=== PATIENT | female | born 1990 | race Caucasian/White ===

== ENCOUNTER 2018-02-07 18:28 | Outpatient (CLI) ==
[2018-02-08 00:44] VITALS: BP 138/76; PULSE 77; RESP 16; TEMP 98.3
--- NOTE | 2018-02-09 17:12 | P.MSEPDOC ---
Presenting Problems - Arrival Data Date of Arrival on Unit: 02/07/18 Time of Arrival on Unit: 18:28 Mode of Transport: Ambulatory - Complaint OB-Reason for Admission/Chief Complaint: Possible Onset of Labor Comment: No care, states anshul today 2 min apart with pelvic pressure Medical History - Information : 3 Para: 1 Term: 1 : 0 Abortions: Spontaneous or Elective: 1 Number of Living Children: 1 - Gestational Age Gestational Age by EMILY (wks/days): 40 Weeks and 2 Days - History Complications: No Care, Smoker Review of Systems - Review of Systems Constitutional: No problems Breast: No problems ENT: No problems Cardiovascular: No problems Respiratory: No problems Gastrointestinal: No problems Genitourinary: No problems Musculoskeletal: No problems Neurological: No problems Skin: No problems Vital Signs - Temperature Temperature: 98.3 F Temperature Source: Temporal Artery Scan - Pulse Right Brachial Pulse Rate: 77 Pulse Assessment Method: Automatic Cuff - Respirations Respiratory Rate: 16 Oxygen Delivery Method: Room Air - Blood Pressure Right Arm Blood Pressure: 138/76 Blood Pressure Mean: 96 Blood Pressure Source: Automatic Cuff Medical Screen Scoring (Pre) - Cervical Exam Dilation: 1-3 cm = 1 Effacement: Exam Deferred Membranes: Intact - Uterine Contractions Frequency: > 5 minutes apart = 1 Duration: > 40 seconds = 2 Intensity: N/A - Maternal Vital Signs Maternal Temperature: N/A Maternal Blood Pressure: N/A Signs of Preeclampsia: N/A Maternal Respirations: N/A - Pain Assessment Pain Location and Character: Abdomen Pain Scale Used: Numeric (1 - 10) Pain Intensity: 6 Pain Description: *Acute, Tightness Pain Frequency: Intermittent Pain Duration: 3 Pain Duration Units: Hours Pain Behavior: None Exhibited Pain Aggravating Factors: Contractions - Maternal Trauma Maternal Trauma: N/A - Assessment Baseline FHR: 120 Heart Rate - NICHD Category: Category I (Normal) = 0 - Total Score Total Score (Pre): 4 - Level of Risk Level of Risk: Low (0-5) Medical Screen Scoring (Post) - Cervical Exam Dilation: 1-3 cm = 1 Effacement: Exam Deferred Membranes: Intact - Uterine Contractions Frequency: > 5 minutes apart = 1 Duration: N/A Intensity: N/A - Maternal Vital Signs Maternal Temperature: N/A Maternal Blood Pressure: N/A Maternal Respirations: N/A - Maternal Trauma Maternal Trauma: N/A - Total Score Total Score (Post): 2 Physician Notification (Post) - Physician Notified Physician Notified Date: 02/07/18 Physician Notified Time: 20:15 Spoke With: Mimi Constantino Order Received: Yes (discharge) - Notification Comment Comment: not in labor, labs have been drawn and ultrasound last week Disposition - Disposition OB Disposition: Discharge to home, Written follow up instructions reviewed Discharge Date: 02/07/18 Discharge Time: 20:30 I agree with the RN Medical Screening Exam: Yes Risk & Benefit of care provided described in d/c instruction: Yes Diagnosis: FALSE LABOR AT OR AFTER 37 COMPLETED WEEKS OF GESTATION
== END 2018-02-07 20:30 | disposition home or self-care (01) ==
LOC: FBPOP 18:28
PROVIDERS: ATTEND Obstetrics & Gynecology
DX: O47.1 False labor at or after 37 completed weeks of gestation (principal); Z3A.40 40 weeks gestation of pregnancy
CPT/HCPCS: 59025; 99213

== ENCOUNTER 2018-02-08 04:35 | Inpatient (IN) | payer OTHER ==
[2018-02-08] MEDS ORDERED: TERBUTALINE 1 MG/ML VIAL SQ PRN (04:55)
[2018-02-08] MEDS ORDERED: OXYTOCIN 10 UNIT/ML 1 ML VIAL IM PRN (04:55)
[2018-02-08] MEDS ORDERED: LIDOCAINE 1% (PF) 10 MG/ML (30 ML SDV) SQ PRN (04:55)
[2018-02-08] MEDS ORDERED: CARBOPROST TROMETHAMINE 250 MCG/ML 1 ML AMP IM PRN (04:55)
[2018-02-08] MEDS ORDERED: METHYLERGONOVINE 0.2 MG/ML 1 ML AMP IM PRN (04:55)
[2018-02-08] MEDS ORDERED: CLINDAMYCIN 900 MG in DEXTROSE 5% IN WATER 50 ML IVPB SCH ×2 (05:00)
[2018-02-08] MEDS ORDERED: CLINDAMYCIN 900 MG in DEXTROSE 5% IN WATER 50 ML IVPB STA ×2 (05:07)
[2018-02-08] MEDS: LACTATED RINGERS 1,000 ML IV SCH ×2 (05:24→05:52)
[2018-02-08 05:38] LABS: Basophils % (A) 0 %; Eosinophils # (A) 0.1 k/uL (0-0.7); Eosinophils % (A) 1 %; HCT 35.9 % (34.0-46.0); HGB 12.9 gm/dL (11.4-16.0); Hyperchromasia Slight; Lymphocytes # (A) 1.4 k/uL (1.0-4.8); Lymphocytes % (A) 18 %; MCH 30.2 pg (25.0-35.0); MCHC 35.9 g/dL (31.0-37.0); MCV 84.1 fL (80.0-100.0); Mean Platelet Volume 8.8; Monocytes # (A) 0.5 k/uL (0-1.0); Monocytes % (A) 7 %; Neutrophils # (A) 5.6 k/uL (1.3-7.7); Neutrophils % (A) 71 %; Platelet Count 172 k/uL (150-450); Poikilocytosis Slight; RBC 4.27 m/uL (3.80-5.40); WBC 7.9 k/uL (3.8-10.6)
[2018-02-08 05:48] VITALS: BMI 27.1
[2018-02-08] MEDS ORDERED: SODIUM CHLORIDE 0.9% 100 ML BAG ONE (06:21)
[2018-02-08] MEDS ORDERED: BUPIVACAINE (PF) 0.25% 30 ML VIAL ONE (06:21)
[2018-02-08] MEDS ORDERED: fentaNYL (PF) 50 MCG/ML 5 ML AMP ONE (06:21)
[2018-02-08] MEDS ORDERED: BUPIVACAINE (PF) 0.25% 25 ML, fentaNYL (PF) 200 MCG in SODIUM CHLORIDE 0.9% 71 ML EPIDURAL ONE (06:48)
[2018-02-08] MEDS ORDERED: HYDROCORTISONE 2.5% RECTAL CREAM 30 GM TUBE RECTAL PRN (11:28)
[2018-02-08] MEDS ORDERED: LANOLIN CREAM 5 GM TUBE TOPICAL PRN (11:28)
[2018-02-08] MEDS ORDERED: WITCH HAZEL 1 EACH MED..PAD TOPICAL PRN (11:28)
[2018-02-08] MEDS ORDERED: diphenhydrAMINE 50 MG/ML 1 ML VIAL IVP PRN ×2 (11:28)
[2018-02-08] MEDS ORDERED: ZOLPIDEM 5 MG TAB PO PRN (11:28)
[2018-02-08] MEDS ORDERED: SIMETHICONE 80 MG CHEWABLE PO PRN (11:28)
[2018-02-08] MEDS ORDERED: BENZOCAINE/MENTHOL SPRAY 1 GM/SPRAY AEROSOL TOPICAL PRN (11:28)
[2018-02-08] MEDS ORDERED: diphenhydrAMINE 50 MG CAP PO PRN (11:28)
[2018-02-08] MEDS ORDERED: MEASLES-MUMPS-RUBELLA VACC/PF 12,500 UNIT/0.5 ML VIAL SQ ONE (11:28)
[2018-02-08] MEDS ORDERED: diphenhydrAMINE 25 MG CAP PO PRN (11:28)
[2018-02-08] MEDS: IBUPROFEN 600 MG TAB PO PRN (17:56)
[2018-02-08] MEDS: ACETAMINOPHEN TAB 325 MG TAB PO PRN (19:52)
[2018-02-08] MEDS: SENNOSIDES-DOCUSATE SODIUM 1 EACH TAB PO SCH (19:54)
[2018-02-09] MEDS: IBUPROFEN 600 MG TAB PO PRN ×4 (00:45→23:02)
--- NOTE | 2018-02-09 08:11 | P.HPOB ---
History of Present Illness H&P Date: 02/08/18 Chief Complaint: Labor 28 year old presents at 40 weeks and 3 days by a third trimester ultrasound in active labor. Patient was admitted by my partner Dr. Cartagena. Her cervix was 5 cm dilated, 80% effaced, -2 station. She is anshul every 3-5 minutes. heart tones 130-135 with moderate variability and reactive. This patient has had no care she has been seen 1 time in the care [place] an area and had a and ultrasound done there on January 23 that said that she was 38 weeks and 1 day. She was in triage on February 05 and indicated that she planned to deliver here so labs were drawn at that time. Review of Systems All systems: negative Constitutional: Denies chills, Denies fever Eyes: denies blurred vision, denies pain Ears, nose, mouth and throat: Denies headache, Denies sore throat Cardiovascular: Denies chest pain, Denies shortness of breath Respiratory: Denies cough Gastrointestinal: Denies abdominal pain, Denies diarrhea, Denies nausea, Denies vomiting Genitourinary: Denies dysuria, Denies hematuria Musculoskeletal: Denies myalgias Integumentary: Denies pruritus, Denies rash Neurological: Denies numbness, Denies weakness Psychiatric: Denies anxiety, Denies depression Endocrine: Denies fatigue, Denies weight change Past Medical History Past Medical History: No Reported History Additional Past Medical History / Comment(s): Obstetric history: She's had one spontaneous and 1 previous vaginal delivery. She's had no care with this , see history of present illness for further details. Blood type is O+, antibodies negative, rubella nonimmune, hepatitis B-, GBS unknown, HIV nonreactive, urine tox screen was negative. History of Any Multi-Drug Resistant Organisms: None Reported Past Surgical History: No Surgical Hx Reported Past Anesthesia/Blood Transfusion Reactions: No Reported Reaction Past Psychological History: No Psychological Hx Reported Smoking Status: Current every day smoker Past Alcohol Use History: None Reported Past Drug Use History: None Reported - Past Family History Mother Family Medical History: No Reported History Medications and Allergies Home Medications Medication Instructions Recorded Confirmed Type No Known Home Medications [No 02/08/18 02/08/18 History Known Home Medications] Allergies Allergy/AdvReac Type Severity Reaction Status Date / Time amoxicillin AdvReac Unknown Verified 02/08/18 04:39 Childhood Exam Osteopathic Statement: *. No significant issues noted on an osteopathic structural exam other than those noted in the History and Physical/Consult. - Vital Signs Vital signs: Vital Signs Temp Pulse Resp BP 02/09/18 00:00 98.8 F 72 16 118/73 02/08/18 20:00 98.5 F 67 16 132/74 02/08/18 16:00 97.7 F 71 18 119/68 02/08/18 13:08 67 16 118/67 02/08/18 12:38 67 16 118/67 02/08/18 12:08 60 16 121/76 02/08/18 11:53 57 L 16 123/61 02/08/18 11:38 58 L 16 116/56 02/08/18 11:23 81 16 128/68 02/08/18 11:08 98.3 F 70 16 126/61 Heart: Regular rate and rhythm Lungs: Clear to auscultation bilaterally Abdomen: Soft, nontender Extremities: Negative Homans sign Results Result Diagrams: 02/08/18 05:20 Assessment and Plan (1) Normal labor Current Visit: Yes Status: Acute Code(s): O80 - ENCOUNTER FOR FULL-TERM UNCOMPLICATED DELIVERY; Z37.9 - OUTCOME OF DELIVERY, UNSPECIFIED SNOMED Code(s ): 41336414 (2) No care in current in third trimester Current Visit: Yes Status: Acute Code(s): O09.33 - SUPRVSN OF PREG W INSUFFICIENT ANTENAT CARE, THIRD TRIMESTER SNOMED Code(s): 454143384 Plan: 1. Admit to family place 2. Expectant management 3. Anaprox for GBS prophylaxis 4. Anticipate normal vaginal delivery
[2018-02-09] MEDS: SENNOSIDES-DOCUSATE SODIUM 1 EACH TAB PO SCH ×2 (08:12→19:30)
--- NOTE | 2018-02-09 08:14 | P.PROBDLV ---
Vaginal Delivery Note - . Vaginal Delivery Note: 28-year-old G 3 P1 presented at 40 weeks and 3 days in active labor. When she was about 9 cm dilated 80% effaced and -1 station amniotomy was performed at 10 AM. Thick meconium fluid was noted. heart tones were 100 3135 with moderate variability and reactive. She was comfortable with epidural at this time. She proceeded complete around 1040 pushed, and delivered a viable male infant over intact perineum under epidural anesthesia at 10:53 AM. Head delivered OA, anterior shoulder delivered gentle downward traction followed by posterior shoulder and rest of body. Nose and mouth bulb suctioned, cord clamped and cut, infant placed mother's abdomen. Apgars 8, 9, weight 8 lbs. 5 oz. Placenta delivered spontaneously, intact with three-vessel cord at 10:55 AM. Vagina, cervix, and perineum were inspected. First-degree midline laceration was repaired with 3-0 Vicryl. Estimated blood loss 150 mL. Mother and baby in stable condition.
--- NOTE | 2018-02-09 08:17 | P.DS ---
Providers Date of admission: 02/08/18 04:54 Expected date of discharge: 02/09/18 Attending physician: Mathew Le Primary care physician: Stated None - Discharge Diagnosis(es) (1) Normal labor Current Visit: Yes Status: Resolved (2) No care in current in third trimester Current Visit: Yes Status: Acute (3) Normal vaginal delivery Current Visit: Yes Status: Acute Hospital Course: Patient presented at 40 weeks and 3 days in active labor and underwent a normal vaginal delivery. Her course was uncomplicated. She denies nausea, vomiting, chest pain, shortness of breath or calf pain. She'll be discharged home day #1 in stable condition to follow-up with me in 6 weeks. Plan - Discharge Summary New Discharge Prescriptions: New Ibuprofen [Motrin] 600 mg PO Q6HR PRN #30 tab PRN Reason: Mild Pain Or Fever >= 100.5 Discharge Medication List Ibuprofen [Motrin] 600 mg PO Q6HR PRN #30 tab 02/09/18 [Rx] Follow up Appointment(s)/Referral(s): Karina Partida DO [Doctor of Osteopathic Medicine] - 6 Weeks Discharge Disposition: HOME SELF-CARE
[2018-02-09] MEDS: ACETAMINOPHEN TAB 325 MG TAB PO PRN ×2 (09:33→19:30)
[2018-02-10] MEDS: SENNOSIDES-DOCUSATE SODIUM 1 EACH TAB PO SCH (08:25)
[2018-02-10] MEDS: IBUPROFEN 600 MG TAB PO PRN (08:25)
[2018-02-10 16:40] VITALS: BP 130/71; PULSE 55; RESP 18; TEMP 98.6
== END 2018-02-10 17:45 | disposition home or self-care (01) | DRG 775 ==
LOC: FBPOP 04:35 → MERGE 04:54 → 4FBP 04:54
PROVIDERS: ADMIT Obstetrics & Gynecology; ATTEND Obstetrics & Gynecology
PROC: 0HQ9XZZ Repair Perineum Skin, External Approach (ICD-10-PCS; principal; 2018-02-08)
PROC: 10E0XZZ Delivery of Products of Conception, External Approach (ICD-10-PCS; 2018-02-08)
DX: O48.0 Post-term pregnancy (principal); F17.200 Nicotine dependence, unspecified, uncomplicated; Z37.0 Single live birth; Z3A.40 40 weeks gestation of pregnancy; O70.0 First degree perineal laceration during delivery; O77.0 Labor and delivery complicated by meconium in amniotic fluid; O99.334 Smoking (tobacco) complicating childbirth; Z88.0 Allergy status to penicillin
CPT/HCPCS: 59025; 85025; 88307; 99213

== ENCOUNTER → 2020-09-15 | Outpatient (CLI) | payer OTHER ==
--- NOTE | 2020-09-16 07:09 | US ---
EXAMINATION TYPE: US OB >= 14 wk fetus DATE OF EXAM: 09/15/2020 COMPARISON: None CLINICAL HISTORY: Z36 dates and viability unknown dates TECHNIQUE: OBTA GESTATIONAL AGE / DATING Physician Established: Not yet established Dates by LMP: LMP unknown Dates by First Scan: No previous this is first scan Dates by Current Scan: (17 weeks/5 days) EDC: 02/18/2021 SURVEY IUP: Single PLACENTA: Anterior PREVIA: No Previa ALIX: 16.3 cm Normal CERVICAL LENGTH (transabdominal: norm > 3.0cm): 3.6 cm BIOMETRY PRESENTATION: Variable BPD: 3.8 cm 17 weeks / 5 days HC: 13.6 cm 17 weeks / 1 days AC: 12.7 cm 18 weeks / 2 days FL: 2.4 cm 17 weeks / 4 days ESTIMATED WEIGHT IN GRAMS: 211 grams ESTIMATED WEIGHT IN LBS/OZ: 0 lbs. 7 oz. HC/AC: 1.1 Normal FL/AC: 20 Normal HEART RATE: 172 bpm RHYTHM: Normal IMPRESSION: Single viable intrauterine .
== END | disposition home or self-care (01) ==
LOC: RADUSWWP 17:08
PROVIDERS: ATTEND Obstetrics & Gynecology
DX: O36.72X0 Maternal care for viable fetus in abdominal pregnancy, second trimester, not applicable or unspecified (principal); Z3A.17 17 weeks gestation of pregnancy
CPT/HCPCS: 76805

== ENCOUNTER → 2020-10-27 | Outpatient (CLI) | payer OTHER ==
--- NOTE | 2020-10-28 08:05 | US ---
EXAMINATION TYPE: US OB >= 14 wk fetus DATE OF EXAM: 10/27/2020 COMPARISON: None CLINICAL HISTORY: 22-year-old female Z36.3 Encounter for screening for ma, growth TECHNIQUE: OBTA GESTATIONAL AGE / DATING Physician Established: (25 weeks/3 days) EDC: 02/18/2021 Dates by LMP: LMP unknown Dates by First Scan: (23 weeks/5 days) EDC: 02/18/2021 Dates by Current Scan: (22 weeks/3 days) EDC: 02/27/2021 FINDINGS: SURVEY IUP: Single PLACENTA: Anterior PREVIA: No Previa ALIX: 17.5 cm Normal CERVICAL LENGTH (transabdominal: norm > 3.0cm): 3.0cm BIOMETRY PRESENTATION: Breech BPD: 5.2 cm 22 weeks / 0 days HC: 21.2 cm 23 weeks / 3 days AC: 17.0 cm 22 weeks / 1 days FL: 3.7 cm 22 weeks / 1 days ESTIMATED WEIGHT IN GRAMS: 478 grams ESTIMATED WEIGHT IN LBS/OZ: 1 lbs. 1 oz. WEIGHT PERCENTAGE BASED ON ESTABLISHED DATES: 2% HC/AC: 1.25 (1.05-1.21). Mildly elevated. FL/AC: 22 Normal HEART RATE: 149 bpm RHYTHM: Normal IMPRESSION: 1. Single live intrauterine at 22 weeks 3 days by current biometry. There has been 1 week 2 days less growth than expected as compared to the patient's initial 09/15/2020 scan. In additi on, the patient reports an established gestational age of 25 weeks 3 days, so, the current size is 3 weeks smaller. EFW percent is at 2%. Close follow-up recommended as we note a mildly elevated HC/AC w hich can be seen with early brain sparing physiology. Further evaluation as clinically indicated. 2. In addition, note cervical length at the lower limits (3 cm).
== END | disposition home or self-care (01) ==
LOC: RADUSWWP 16:17
PROVIDERS: ATTEND Obstetrics & Gynecology
DX: Z36.3 Encounter for antenatal screening for malformations (principal); Z3A.22 22 weeks gestation of pregnancy
CPT/HCPCS: 76805

== ENCOUNTER 2024-07-26 18:32 | Emergency (ER) | payer OTHER ==
[2024-07-26 18:41] VITALS: RESP 16; TEMP 98.9
--- NOTE | 2024-07-26 19:27 | ED ---
Dizziness HPI - General Chief Complaint: Dizziness Stated Complaint: Dizziness Time Seen by Provider: 07/26/24 19:10 Source: patient, family, RN notes reviewed Mode of arrival: ambulatory Limitations: no limitations - History of Present Illness Initial Comments: 34-year-old female past medical history presenting to the ER with chief complaint of dizziness x 1 week wth associated body aches, sore throat, cough, chest pain, shortness of breath. States when she stands up she feels as though she is going to pass out, states she has not passed out though. States she has pain with inspiration. She has also had intermittent subjective chills. She is a vape smoker. Denies history of blood clots, recent surgeries, recent travel, blood thinners. States she has had the lightheadedness before and was hospitalized for this where they told her she had a low heart rate. - Related Data Home Medications Medication Instructions Recorded Confirmed No Known Home Medications 02/07/18 02/07/18 Previous Rx's Medication Instructions Recorded Ibuprofen [Motrin] 600 mg PO Q6HR PRN #30 tab 02/09/18 Allergies Allergy/AdvReac Type Severity Reaction Status Date / Time amoxicillin Allergy Unknown Verified 02/07/18 18:45 Childhood Review of Systems ROS Statement: Those systems with pertinent positive or pertinent negative responses have been documented in the HPI. ROS Other: All systems not noted in ROS Statement are negative. Past Medical History Past Medical History: No Reported History Additional Past Medical History / Comment(s): Obstetric history: She's had one spontaneous and 1 previous vaginal delivery. She's had no care with this , see history of present illness for further details. Blood type is O+, antibodies negative, rubella nonimmune, hepatitis B-, GBS unknown, HIV nonreactive, urine tox screen was negative. History of Any Multi-Drug Resistant Organisms: None Reported Past Surgical History: No Surgical Hx Reported Past Anesthesia/Blood Transfusion Reactions: No Reported Reaction Past Psychological History: No Psychological Hx Reported Smoking Status: Vaper Past Alcohol Use History: Abuse Past Drug Use History: Opiates, Prescription Drug Abuse - Past Family History Mother Family Medical History: No Reported History General Exam Limitations: no limitations General appearance: alert, in no apparent distress Head exam: Present: atraumatic, normocephalic, normal inspection Eye exam: Present: normal appearance, PERRL, EOMI. Absent: scleral icterus, conjunctival injection, periorbital swelling ENT exam: Present: normal exam, normal oropharynx, mucous membranes moist Neck exam: Present: normal inspection. Absent: tenderness, meningismus, lymphadenopathy Respiratory exam: Present: normal lung sounds bilaterally. Absent: respiratory distress, wheezes, rales, rhonchi, stridor Cardiovascular Exam: Present: regular rate, normal rhythm, normal heart sounds. Absent: systolic murmur, diastolic murmur, rubs, gallop, clicks GI/Abdominal exam: Present: soft, normal bowel sounds. Absent: distended, tenderness, guarding, rebound, rigid Neurological exam: Present: alert, oriented X3, CN II-XII intact Psychiatric exam: Present: normal affect, normal mood Skin exam: Present: warm, dry, intact, normal color. Absent: rash Course Vital Signs 07/26/24 18:36 Temperature 98.9 F Pulse Rate 60 Respiratory 16 Rate Blood Pressure 113/74 O2 Sat by Pulse 98 Oximetry EKG Findings - EKG Results: EKG: interpreted by [facility] (EKG reveals sinus bradycardia with low QRS voltage. Ventricular rate 49 bpm, IL interval 128, QRS duration 101, QT/QTc 448/417) Medical Decision Making - Medical Decision Making Was pt. sent in by a medical professional or institution (, PA, RISK OFFICER, urgent care, hospital, or usp...) When possible be specific @ -No Did you speak to anyone other than the patient for history (EMS, parent, family, police, friend...)? What history was obtained from this source @ -No Did you review nursing and triage notes (agree or disagree)? Why? @ -I reviewed and agree with nursing and triage notes Were old charts reviewed (outside hosp., previous admission, EMS record, old EKG, old radiological studies, urgent care reports/EKG's, usp records)? Report findings @ -No old charts were reviewed Differential Diagnosis (chest pain, altered mental status, abdominal pain women, abdominal pain men, vaginal bleeding, weakness, fever, dyspnea, syncope, headache, dizziness, GI bleed, back pain, seizure, CVA, palpatations, mental health, musculoskeletal)? @ -Differential Dizziness: Benign paroxysmal positional Vertigo, Meniere's disease, otitis media, acoustic neuroma, vertebrobasilar insufficiency, cerebellar stroke, encephalitis, hypovolemic, arrhythmia, coronary artery syndrome, anemia, this is not meant to be an all-inclusive list EKG interpreted by me (3pts min.). @ -As above X-rays interpreted by me (1pt min.). @ -Chest x-ray reveals no acute process CT interpreted by me (1pt min.). @ -None done U/S interpreted by me (1pt. min.). @ -None done What testing was considered but not performed or refused? (CT, X-rays, U/S, labs)? Why? @ -None What meds were considered but not given or refused? Why? @ -None Did you discuss the management of the patient with other professionals (bipin soliman i.e. , PA, RISK OFFICER, lab, RT, psych nurse, social worker psychiatric, supervisor diagnostic, teacher, foreign service officer, human services case manager)? Give summary @ -No Was smoking cessation discussed for >3mins.? @ -No Was critical care preformed (if so, how long)? @ -No Were there social determinants of health that impacted care today? How? (Homelessness, low income, unemployed, alcoholism, drug addiction, transportation, low edu. Level, literacy, decrease access to med. care, assisted, rehab)? @ -No Was there de-escalation of care discussed even if they declined (Discuss DNR or withdrawal of care, Hospice)? DNR status @ -No What co-morbidities impacted this encounter? (DM, HTN, Smoking, COPD, CAD, Cancer, CVA, ARF, Chemo, Hep., AIDS, mental health diagnosis, sleep apnea, morbid obesity)? @ -None Was patient admitted / discharged? Hospital course, mention meds given and route, prescriptions, significant lab abnormalities, going to OR and other pertinent info. @ -Discharge. This is a 34-year-old female presenting for dizziness x 1 week with sore throat, shortness of breath, nasal congestion, and cough. Vital signs are within acceptable limits upon initial evaluation. Physical examination is unremarkable. No sign of bacterial infection. Patient was provided with IV fluids and analgesics. Workup including CBC, CMP, troponin, coags, D-dimer unremarkable. Chest x-ray reveals no acute process. EKG reveals sinus jessie cardia with no ST changes. Discussed findings with patient. I do not believe symptoms are caused by emergent etiology at this time. Discussed diagnosis of viral upper respiratory infection. Advise close follow-up with PCP for further evaluation for bradycardia. Strict return precautions discussed and patient is agreeable to plan. Case was discussed with my ED attending Dr. Gama. Patient stable at time of discharge. Undiagnosed new problem with uncertain prognosis? @ -No Drug Therapy requiring intensive monitoring for toxicity (Heparin, Nitro, Insulin, Cardizem)? @ -No Were any procedures done? @ -No Diagnosis/symptom? @ -Viral upper respiratory infection, dizziness Acute, or Chronic, or Acute on Chronic? @ -Acute Uncomplicated (without systemic symptoms) or Complicated (systemic symptoms)? @ -Uncomplicated Side effects of treatment? @ -No Exacerbation, Progression, or Severe Exacerbation? @ -No Poses a threat to life or bodily function? How? (Chest pain, USA, IA, pneumonia, PE, COPD, DKA, ARF, appy, cholecystitis, CVA, Diverticulitis, Homicidal, Suicidal, threat to staff... and all critical care pts) @ -Unlikely - Lab Data Result diagrams: 07/26/24 19:58 07/26/24 19:58 Lab Results 07/26/24 07/26/24 07/26/24 Range/Units 19:58 19:58 19:58 WBC 10.2 (3.8-10.6) k/uL RBC 4.93 (3.80-5.40) m/uL Hgb 13.9 (11.4-16.0) gm/dL Hct 41.0 (34.0-46.0) % MCV 83.2 (80.0-100.0) fL MCH 28.3 (25.0-35.0) pg MCHC 34.0 (31.0-37.0) g/dL RDW 12.8 (11.5-15.5) % Plt Count 337 (150-450) k/uL MPV 8.4 Neutrophils % 74 % Lymphocytes % 16 % Monocytes % 6 % Eosinophils % 2 % Basophils % 1 % Neutrophils # 7.5 (1.3-7.7) k/uL Lymphocytes # 1.7 (1.0-4.8) k/uL Monocytes # 0.6 (0-1.0) k/uL Eosinophils # 0.2 (0-0.7) k/uL Basophils # 0.1 (0-0.2) k/uL PT 10.0 (10.0-12.5) sec INR 0.9 (<1.2) APTT 26.5 (22.0-30.0) sec D-Dimer 0.51 (<0.60) mg/L FEU Sodium (137-145) mmol/L Potassium (3.5-5.1) mmol/L Chloride (98-107) mmol/L Carbon Dioxide (22-30) mmol/L Anion Gap mmol/L BUN (7-17) mg/dL Creatinine (0.52-1.04) mg/dL Est GFR (CKD-EPI)AfAm (>60 ml/min/1.73 sqM) Est GFR (CKD-EPI)NonAf (>60 ml/min/1.73 sqM) Glucose (74-99) mg/dL Calcium (8.4-10.2) mg/dL Total Bilirubin (0.2-1.3) mg/dL AST (14-36) U/L ALT (4-34) U/L Alkaline Phosphatase (38-126) U/L Troponin I (0.000-0.034) ng/mL Total Protein (6.3-8.2) g/dL Albumin (3.5-5.0) g/dL Urine HCG, Qual Not Detected (Not Detectd) Influenza Type A (PCR) (Not Detectd) Influenza Type B (PCR) (Not Detectd) RSV (PCR) (Not Detectd) SARS-CoV-2 (PCR) (Not Detectd) Group A Strep (PCR) (Not Detectd) 07/26/24 07/26/24 07/26/24 Range/Units 19:58 19:58 19:58 WBC (3.8-10.6) k/uL RBC (3.80-5.40) m/uL Hgb (11.4-16.0) gm/dL Hct (34.0-46.0) % MCV (80.0-100.0) fL MCH (25.0-35.0) pg MCHC (31.0-37.0) g/dL RDW (11.5-15.5) % Plt Count (150-450) k/uL MPV Neutrophils % % Lymphocytes % % Monocytes % % Eosinophils % % Basophils % % Neutrophils # (1.3-7.7) k/uL Lymphocytes # (1.0-4.8) k/uL Monocytes # (0-1.0) k/uL Eosinophils # (0-0.7) k/uL Basophils # (0-0.2) k/uL PT (10.0-12.5) sec INR (<1.2) APTT (22.0-30.0) sec D-Dimer (<0.60) mg/L FEU Sodium 133 L (137-145) mmol/L Potassium 4.7 (3.5-5.1) mmol/L Chloride 97 L (98-107) mmol/L Carbon Dioxide 31 H (22-30) mmol/L Anion Gap 5 mmol/L BUN 14 (7-17) mg/dL Creatinine 1.04 (0.52-1.04) mg/dL Est GFR (CKD-EPI)AfAm 83 (>60 ml/min/1.73 sqM) Est GFR (CKD-EPI)NonAf 72 (>60 ml/min/1.73 sqM) Glucose 112 H (74-99) mg/dL Calcium 9.3 (8.4-10.2) mg/dL Total Bilirubin 0.4 (0.2-1.3) mg/dL AST 25 (14-36) U/L ALT 16 (4-34) U/L Alkaline Phosphatase 138 H (38-126) U/L Troponin I <0.012 (0.000-0.034) ng/mL Total Protein 6.8 (6.3-8.2) g/dL Albumin 4.1 (3.5-5.0) g/dL Urine HCG, Qual (Not Detectd) Influenza Type A (PCR) (Not Detectd) Influenza Type B (PCR) (Not Detectd) RSV (PCR) (Not Detectd) SARS-CoV-2 (PCR) (Not Detectd) Group A Strep (PCR) NOT DETECTED (Not Detectd) 07/26/24 Range/Units 19:58 WBC (3.8-10.6) k/uL RBC (3.80-5.40) m/uL Hgb (11.4-16.0) gm/dL Hct (34.0-46.0) % MCV (80.0-100.0) fL MCH (25.0-35.0) pg MCHC (31.0-37.0) g/dL RDW (11.5-15.5) % Plt Count (150-450) k/uL MPV Neutrophils % % Lymphocytes % % Monocytes % % Eosinophils % % Basophils % % Neutrophils # (1.3-7.7) k/uL Lymphocytes # (1.0-4.8) k/uL Monocytes # (0-1.0) k/uL Eosinophils # (0-0.7) k/uL Basophils # (0-0.2) k/uL PT (10.0-12.5) sec INR (<1.2) APTT (22.0-30.0) sec D-Dimer (<0.60) mg/L FEU Sodium (137-145) mmol/L Potassium (3.5-5.1) mmol/L Chloride (98-107) mmol/L Carbon Dioxide (22-30) mmol/L Anion Gap mmol/L BUN (7-17) mg/dL Creatinine (0.52-1.04) mg/dL Est GFR (CKD-EPI)AfAm (>60 ml/min/1.73 sqM) Est GFR (CKD-EPI)NonAf (>60 ml/min/1.73 sqM) Glucose (74-99) mg/dL Calcium (8.4-10.2) mg/dL Total Bilirubin (0.2-1.3) mg/dL AST (14-36) U/L ALT (4-34) U/L Alkaline Phosphatase (38-126) U/L Troponin I (0.000-0.034) ng/mL Total Protein (6.3-8.2) g/dL Albumin (3.5-5.0) g/dL Urine HCG, Qual (Not Detectd) Influenza Type A (PCR) Not Detected (Not Detectd) Influenza Type B (PCR) Not Detected (Not Detectd) RSV (PCR) Not Detected (Not Detectd) SARS-CoV-2 (PCR) Not Detected (Not Detectd) Group A Strep (PCR) (Not Detectd) Disposition Clinical Impression: Lightheadedness, Viral upper respiratory infection Disposition: HOME SELF-CARE Condition: Stable Instructions (If sedation given, give patient instructions): Upper Respiratory Infection (ED), Dizziness (ED) Additional Instructions: Take ibuprofen/Tylenol as needed for pain. Follow-up with PCP as discussed on Monday. Please return to the Emergency Department if symptoms worsen or any other concerns. Is patient prescribed a controlled substance at d/c from ED?: No Referrals: Sailaja Hawley MD [Primary Care Provider] - 1-2 days Time of Disposition: 21:32
[2024-07-26] MEDS: IBUPROFEN 600 MG TAB PO STA (19:58)
[2024-07-26] MEDS: SODIUM CHLORIDE 0.9% 1,000 ML IV STA (19:58)
[2024-07-26 20:19] LABS: Basophils # (A) 0.1 k/uL (0-0.2); Basophils % (A) 1 %; Eosinophils # (A) 0.2 k/uL (0-0.7); Eosinophils % (A) 2 %; HGB 13.9 gm/dL (11.4-16.0); Lymphocytes # (A) 1.7 k/uL (1.0-4.8); Lymphocytes % (A) 16 %; MCH 28.3 pg (25.0-35.0); MCV 83.2 fL (80.0-100.0); Mean Platelet Volume 8.4; Monocytes # (A) 0.6 k/uL (0-1.0); Monocytes % (A) 6 %; Neutrophils # (A) 7.5 k/uL (1.3-7.7); Neutrophils % (A) 74 %; Platelet Count 337 k/uL (150-450); RBC 4.93 m/uL (3.80-5.40); RDW 12.8 % (11.5-15.5); WBC 10.2 k/uL (3.8-10.6)
[2024-07-26 20:34] LABS: ALT 16 U/L (4-34); AST 25 U/L (14-36); African American GFR (CKD) 83 (>60 ml/min/1.73 sqM); Albumin 4.1 g/dL (3.5-5.0); Alkaline Phosphatase 138 U/L (38-126); Anion Gap 5 mmol/L; Blood Urea Nitrogen 14 mg/dL (7-17); Calcium 9.3 mg/dL (8.4-10.2); Carbon Dioxide 31 mmol/L (22-30); Chloride 97 mmol/L (98-107); Glucose 112 mg/dL (74-99); Non-African American GFR(CKD) 72 (>60 ml/min/1.73 sqM); Potassium 4.7 mmol/L (3.5-5.1); Sodium 133 mmol/L (137-145); Total Bilirubin 0.4 mg/dL (0.2-1.3); Total Protein 6.8 g/dL (6.3-8.2)
[2024-07-26 20:45] LABS: INR 0.9 (<1.2); Partial Thromboplastin Time 26.5 sec (22.0-30.0)
--- NOTE | 2024-07-26 20:45 | XR ---
EXAMINATION TYPE: XR chest 2V DATE OF EXAM: 07/26/2024 8:17 PM CLINICAL INDICATION: Female, 34 years old with history of shortness of breath; PHH COMPARISON: None TECHNIQUE: XR chest 2V Frontal view of the chest. FINDINGS: Lungs/Pleura: There is no evidence of pleural effusion, focal consolidation, or pneumothorax. Pulmonary vascularity: Unremarkable. Heart/mediastinum: Cardiomediastinal silhouette is unremarkable. Musculoskeletal: No acute osseous pathology. IMPRESSION: No acute cardiopulmonary disease/process. [facility], , 07/26/2024 8:43 PM
[2024-07-26 21:58] VITALS: BP 130/86; PULSE 50
== END 2024-07-26 21:57 | disposition home or self-care (01) ==
LOC: EC 18:32
CPT/HCPCS: 36415; 71046; 80053; 81025; 84484; 85025; 85379; 85610; 85730; 87636; 87651; 93005; 96360; 99284